=== PATIENT | female | born 1965 | race Two or more races ===

== ENCOUNTER 2024-07-22 17:38 | Emergency (ER) | payer OTHER, SELFPAY ==
[2024-07-22 17:42] VITALS: BP 165/100
[2024-07-22] MEDS: TORADOL 15 MG IM (18:55)
--- NOTE | 2024-07-22 19:04 | ED.GENMED ---
History of Present Illness
General
Chief Complaint: Musculo-Skeletal Complaint
Source: patient
Exam Limitations: none
Time Seen by Provider: 07/22/24 18:37
Nursing documentation reviewed up to this point in time: agreed with
History of Present Illness
History of Present Illness:
59-year-old female past medical history of diabetes previous breast cancer status post resection presenting to the emergency department with a popping sensation to the right lateral knee earlier today did have some mild pain to the area preceding
this. Difficulty ambulating at this point. Denies redness warmth no fevers
Review of Systems
Review of Systems
Allergies reviewed?: Yes
All Other Systems: ROS reviewed and negative except as documented in HPI and ROS
Phy Exam
Physical Exam
Physical Exam:
GENERAL: Alert , in no apparent distress
EYE: pupils equal and reactive
NECK: Supple, no significant adenopathy.
ENT: o/p clr, mmm.
CARDIAC: Regular rate and rhythm .
LUNGS: Clear breath sounds bilaterally, no acute respiratory distress, no wheezes/rales/rhonchi
ABDOMEN: Soft, without focal tenderness, no r/g, no cvat
NEUROLOGICAL: Alert and oriented, no focal neuro deficits
SKIN: Warm and dry, skin intact.
MUSCULOSKELETAL: Increased discomfort when stressing the LCL tenderness to the lateral knee no tenderness to the popliteal fossa no joint laxity with Fina's anterior drawer. Good range of motion minimal discomfort with full range of motion when
not weightbearing, no edema, well perfused.
PSYCH: Normal and appropriate interaction.
Course
Orders/Labs/Results
Orders:
Orders
07/22/24 17:45
Knee, Right 4 or More Views [CR Knee- Right 4 Or More View*] Urgent
Comment: and can't bear weight
Reason For Exam: right knee pain heard a pop
07/22/24 18:50
Knee Immobilizer Right-Treatme ONCE
Ketorolac [Toradol] 15 mg IM NOW STA
Vital Signs
Initial and Last Documented VS:
Initial Vital Signs
Temp Pulse Resp BP Pulse Ox
97.8 F 86 16 165/100 98
07/22/24 17:42 07/22/24 17:42 07/22/24 17:42 07/22/24 17:42 07/22/24 17:42
Last Documented Vital Signs
Temp Pulse Resp BP Pulse Ox
97.8 F 86 16 165/100 98
07/22/24 17:42 07/22/24 17:42 07/22/24 17:42 07/22/24 17:42 07/22/24 17:42
MDM/Problems Addressed
MDM/Problems Addressed:
59-year-old female presenting to the emergency department today with concerns of right knee pain but a pop earlier today difficulty walking since. Pain reproducible to the lateral right knee but otherwise good range of motion no redness or warmth
no fevers no systemic symptoms not consistent with infection not consistent with DVT. X-ray without acute abnormalities. Symptoms most consistent with potential LCL sprain or lateral knee sprain. Patient was given knee immobilizer
*Critical Care Note
Total Time (30-74mins, 75-104mins- exclusive of procedures): Not Applicable
ED Attending Note
-
Portions of this chart may have been created with voice recognition software.� Occasional wrong word or��sound alike� substitutions may have occurred due to the inherent limitations of voice recognition software.
Discharge Plan
Departure
Patient Disposition: Home (Routine Discharge)
Date of Disposition: 07/22/24
Time of Disposition: 19:42
Patient with high blood pressure during this ER visit?: No
Condition: Good
Covid-19: Not Applicable
Discharge Problem:
Knee sprain
Instructions: Knee Sprain (DC)
Prescriptions:
No Action
letrozole 2.5 mg Tablet
2.5 mg PO DAILY
Referrals:
Tung Thakkar MD [Family Provider] -
Norman Ovalle MD [Active] - Follow up in 1 week
Activity Restrictions/Additional Instructions:
You came to the emergency department today with concerns of knee discomfort. Please rest ice compress and elevate and follow-up close with orthopedics for reassessment. Return for any worsening, new or concerning symptoms.
Interventions
Interventions:
*Risk Screen - Suicide Last Done: 07/22/24 17:45
*General Assessment Last Done: 07/22/24 19:30
*Neglect/Abuse Screening Last Done: 07/22/24 17:45
ED- Fall Risk Assessment Last Done: 07/22/24 19:30
*ED COVID-19 Vaccine History Last Done: 07/22/24 19:30
ED-Musculoskeletal Assessment Last Done: 07/22/24 19:30
Discharge Date and Time
Print Language: JAPANESE
== END 2024-07-22 20:30 | disposition home or self-care (01) ==
LOC: EMR 17:38
PROVIDERS: EMERGENCY PHYSICIAN Emergency Medicine; FAMILY PHYSICIAN Internal Medicine
DX: S83.91XA Sprain of unspecified site of right knee, initial encounter (principal); X58.XXXA Exposure to other specified factors, initial encounter
CPT/HCPCS: 99284; 29505; 96372; 73564